=== PATIENT | male | born 1970 | race Caucasian/White ===

== ENCOUNTER 2016-04-06 00:30 | Emergency (ER) | payer OTHER ==
[~2016-04-06] VITALS: Ht 167.6 cm; Wt 104.5 kg
[2016-04-06 00:40] VITALS: TEMP 37.5; Ht 167.6 cm; Wt 104.5 kg
[2016-04-06] MEDS ORDERED: XYLOCAINE 1%/SOD BICARB 20 ML VIAL INFIL ONE (00:47)
[2016-04-06] MEDS ORDERED: LIDO/EPINEPHRINE/SOD BICARB 20 ML VIAL INFIL ONE (00:59)
[2016-04-06] MEDS ORDERED: CEPHALEXIN 500MG HOME PACK 1 EA BTL PO ONE (01:15)
[2016-04-06] MEDS ORDERED: CEPH500C PO (01:33)
--- NOTE | 2016-04-06 01:46 | EMERGENCY ROOM VISIT NOTE ---
ED Visit Note First contact with patient: 00:46 CHIEF COMPLAINT: Hand injury HISTORY OF PRESENT ILLNESS: This 46 yo patient presented to the emergency department with family after they injured the right hand when he fell tonight landing on the ground. The patient rates the pain as mild and 2/10. The patient denies any numbness or tingling. The patient does not have injuries to the wrist. The patient has not Had a previous fracture to this hand.patient has a laceration to the hand. Tetanus is current. REVIEW OF SYSTEMS: A 6 system review of systems was completed with positives and pertinent negatives in the HPI. ALLERGIES: Dilaudid MEDICATIONS: Reviewed PMH: Hypertension SOCIAL HISTORY: No drug use PHYSICAL EXAM: Vital Signs: Reviewed Nurse's notes, vital signs stable. GENERAL : Pleasant male, in no acute distress, but appears to be in pain, well-developed , well-nourished. MUSCULOSKELETAL: There is no deformity of the right hand. There is tenderness medial aspect of the hand. There is no thenar or hypothenar eminence atrophy. Normal thumb opposition to all fingers. [employer] strength 5/5. There is a 4cm laceration, dorsal aspect. Capillary refill less than 2 seconds. No tenderness of the fingers or wrist. Patient has decreased extension of the fourth finger with resistance. All other fingers have full strength of extension and flexion of the fingers. Full range of motion of the wrist. No snuff box tenderness. Radial pulse 2+. NEURO: Alert and oriented to person, place, and time. Normal sensation to light and sharp touch. EMERGENCY DEPARTMENT COURSE: I examined the patient. An x-ray of the right hand was reviewed by myself and my attending and shows no fracture. Location: Right hand Total length: 4 cm Complexity: Complex, tendon injury Verbal consent was obtained after the risks and benefits were explained, including but not limited to bleeding, scarring, infection, pain, and bone/joint /nerve damage. At this time, the risks of the procedure are less than the risks of NOT performing the procedure. A time out was taken and the correct patient and site identified. The skin was prepped with betadine. The target area was anesthetized with 5 ml of 1% lidocaine without epinephrine. Patient had extensive capillary bleeding and local lidocaine with epinephrine, 3mls, was used to control bleeding. Hemostasis was achieved. Copious irrigation was performed using NSS. The skin was re-prepped with betadine and a sterile field set. The wound was explored for foreign bodies and none found. Examination revealed injury to deep structures such as a partial tendon injury without injury to the bone. Debridement was not performed. The wound edges were approximated using 8, 4-0 simple interrupted nylon sutures. Hemostasis and excellent approximation was achieved. Antibacterial ointment and a sterile dressing applied. Detailed wound care instructions and signs and symptoms of infection reviewed with the pt. No complications and the patient tolerated the procedure well. Splinting Indication: Right hand tendon injury Verbal consent obtained. Risks and benefits were explained with the usual customary discussion. The injured extremity was identified. The patient was prepped and measured for the placement of a ulnar ortho-glass splint. Splint applied in the standard fashion over a layer of webril and secured using an elastic bandage. Set into a position of function. Normal neurovascular status after placement verified by me. The patient tolerated the procedure well and the care of the splint was discussed with the patient/family. No complications. Patient started on antibiotics for the extensive injury. He was counseled on the importance of following up with orthopedic, hand, for definitive care for his hand injury. Family opts to follow-up with their local doctor at [facility]. There is still given information for the local hand doctor here in [facility]. They're advised to return to the ER immediately for severe pain, numbness, tingling, worsening signs or symptoms or as needed. The patient was discharged home in good condition. DIAGNOSIS: #1 right hand injury #2 right hand laceration #3 right hand tendon injury DISCHARGE INSTRUCTIONS: DO NOT drive, drink alcohol, operate machinery, or perform dangerous activities today. You were given medications in the ER that can affect your ability to safely function or operate a vehicle. Cephalexin(Keflex) 500mg: Take one pill four times daily for 10 days. All antibiotics can cause diarrhea. If this occurs and you feel worse or it does not resolve in 1-2 days follow up with your doctor or return to the Emergency Department as this could be signs of serious underlying problems. Any medication can cause an allergic reaction, stop the pills immediately and return to the ER for rash, hives, breathing difficulties, or swelling. Ibuprofen(Motrin, Advil) may be used for fever or pain. Use 600mg every six hours as needed. Take with food. Avoid using more than 2400mg in a 24 hour period. Do not use 2400mg per day for more than three consecutive days without physician direction. Prolonged inappropriate use can lead to stomach upset or ulcers. This medication can be taken if you need to drive, work, or perform activities which may be dangerous when taking narcotic pain medication. (AND/OR) Acetaminophen(Tylenol) may be used for fever or pain. Use 1000mg every six hours as needed. Avoid using more than 3000mg in a 24 hour period. This medication can be taken if you need to drive, work, or perform activities which may be dangerous when taking narcotic pain medication. Ice compresses for 20 minutes at a time four times daily for 2-3 days. Rest and elevate your injury. Do not get the splint wet. If your splint feels excessively tight, you have worsening pain, develop numbness or tingling, or your digits appear blue, loosen the ely wrap. Then reapply the ely wrap gently without removing the splint. If your symptoms are not quickly relieved return to the ER for re- evaluation. Continue current medications. Return to the ER immediately for any numbness, tingling, severe pain, extreme swelling in the extremity or as needed. Call Orthopedics tomorrow to arrange follow up for your injury. See the hand doctor on Thursday. Call for an appointment. Problem List Medical Problems: (1) Hypertension Status: Chronic Current/Historical Medications Scheduled Cephalexin Monohydrate (Keflex), 500 MG PO QID Allergies Coded Allergies: Hydromorphone (Verified Adverse Reaction, Intermediate, N/V, 04/06/16) Vital Signs Date Time Temp Pulse Resp B/P Pulse Ox O2 Delivery O2 Flow Rate FiO2 04/06/16 00:40 37.5 127 20 131/79 95 Room Air Departure Information Impression Primary Impression: Extensor tendon laceration of right hand with open wound Additional Impression: Laceration of right hand Dispostion Home / Self-Care Condition GOOD Prescriptions Cephalexin Monohydrate (Keflex) 500 Mg Cap 500 MG PO QID for 9 Days, #36 CAP Prov: Jeanine Prasad .DYLON 04/06/16 Referrals Rafy Porter MD Forms WORK / SCHOOL INSTRUCTIONS, HOME CARE DOCUMENTATION FORM, IMPORTANT VISIT INFORMATION Patient Instructions Laceration Flexor Tendon Tx, My [facility], ED Laceration All Additional Instructions DO NOT drive, drink alcohol, operate machinery, or perform dangerous activities today. You were given medications in the ER that can affect your ability to safely function or operate a vehicle. Cephalexin(Keflex) 500mg: Take one pill four times daily for 10 days. All antibiotics can cause diarrhea. If this occurs and you feel worse or it does not resolve in 1-2 days follow up with your doctor or return to the Emergency Department as this could be signs of serious underlying problems. Any medication can cause an allergic reaction, stop the pills immediately and return to the ER for rash, hives, breathing difficulties, or swelling. Ibuprofen(Motrin, Advil) may be used for fever or pain. Use 600mg every six hours as needed. Take with food. Avoid using more than 2400mg in a 24 hour period. Do not use 2400mg per day for more than three consecutive days without physician direction. Prolonged inappropriate use can lead to stomach upset or ulcers. This medication can be taken if you need to drive, work, or perform activities which may be dangerous when taking narcotic pain medication. (AND/OR) Acetaminophen(Tylenol) may be used for fever or pain. Use 1000mg every six hours as needed. Avoid using more than 3000mg in a 24 hour period. This medication can be taken if you need to drive, work, or perform activities which may be dangerous when taking narcotic pain medication. Ice compresses for 20 minutes at a time four times daily for 2-3 days. Rest and elevate your injury. Do not get the splint wet. If your splint feels excessively tight, you have worsening pain, develop numbness or tingling, or your digits appear blue, loosen the ely wrap. Then reapply the ely wrap gently without removing the splint. If your symptoms are not quickly relieved return to the ER for re- evaluation. Continue current medications. Return to the ER immediately for any numbness, tingling, severe pain, extreme swelling in the extremity or as needed. Call Orthopedics tomorrow to arrange follow up for your injury. See the hand doctor on Thursday. Call for an appointment. Problem Qualifiers
[2016-04-06 02:02] VITALS: BP 97/66; PULSE 103; O2SAT 93
--- NOTE | 2016-04-06 05:58 | DIAGNOSTIC IMAGING REPORT ---
RIGHT HAND MIN 3 VIEWS ROUTINE CLINICAL HISTORY: fall, right Right trauma. Pain. COMPARISON: None. DISCUSSION: Evidence for old fracture of the fifth metacarpal. Mild soft tissue edema. No acute bony abnormality. IMPRESSION: Mild soft tissue edema. Deformity fifth metacarpal secondary to old trauma. No acute bony abnormality. Electronically signed by: Seth Torres M.D. 04/06/2016 5:57 AM Dictated Date/Time: 04/06/2016 5:56 AM
== END 2016-04-06 02:07 | disposition home or self-care (01) ==
LOC: C.EDB 00:30
DX: S66.324A Laceration of extensor muscle, fascia and tendon of right ring finger at wrist and hand level, initial encounter (principal); W19.XXXA Unspecified fall, initial encounter; I10 Essential (primary) hypertension; Z88.5 Allergy status to narcotic agent

== ENCOUNTER 2017-03-24 12:24 | Emergency (ER) | payer OTHER ==
[~2017-03-24] VITALS: Ht 167.6 cm; Wt 106.8 kg
[2017-03-24 12:26] VITALS: TEMP 36.8; Ht 167.6 cm; Wt 106.8 kg
[2017-03-24] MEDS ORDERED: CEPHALEXIN MONOHYDRATE 250 MG CAP PO ONE (13:00)
--- NOTE | 2017-03-24 13:21 | DIAGNOSTIC IMAGING REPORT ---
R FINGER(S) MIN 2 VIEWS ROUTINE CLINICAL HISTORY: 47 years-old Male presenting with R 5TH FINGERTIP AVULSION/CRUSH INJURY. TECHNIQUE: Frontal, oblique, and lateral views of the right fifth finger were obtained. COMPARISON: 04/06/2016. FINDINGS: Interval development of nondisplaced transversely oriented fracture of the tuft of the distal phalanx of the right fifth finger. An overlying bandage partially tears underlying osseous detail. No malalignment. This does not involve the distal interphalangeal joint. No additional fracture is evident. IMPRESSION: Nondisplaced fracture of the tuft of the distal phalanx of the right fifth finger. Electronically signed by: Connor Hernandez M.D. 03/24/2017 1:20 PM Dictated Date/Time: 03/24/2017 1:19 PM
[2017-03-24] MEDS ORDERED: CEPH500C PO (13:28)
[2017-03-24 13:48] VITALS: BP 159/99; PULSE 91; O2SAT 98
--- NOTE | 2017-03-24 21:22 | EMERGENCY ROOM VISIT NOTE ---
History First contact with patient: 12:41 Chief Complaint: LACERATION/CUT (SUT/DERMABOND) Stated Complaint: LAC TO R FINGER, PINKY Nursing Triage Summary: avulsion to right 5th finger. drive shaft fell down and smahed hand History of Present Illness The patient is a 47 year old male who presents to the Emergency Room with complaints of a laceration to his right fifth finger. The patient reports that he was attempting to remove a drive shaft from a truck when it fell and smashed his fingers. He reports a laceration to the ring finger, but denies any significant discomfort. He rates his small finger pain a 6 out of 10. Tetanus immunization is up-to-date. The patient is [id number]. The patient reports that this was a work-related injury. Review of Systems 10 system review was performed and was negative except for pertinent positives and negatives as indicated in history of present illness Past Medical/Surgical History Medical Problems: (1) Hypertension Family History FH: hypertension No pertinent family history Social History Smoking Status: Never Smoker Alcohol Use: occasionally Drug Use: none Marital Status: Housing Status: lives with family Occupation Status: employed Current/Historical Medications Scheduled Cephalexin Monohydrate (Keflex), 500 MG PO TID Physical Exam Vital Signs Date Time Temp Pulse Resp B/P (MAP) Pulse Ox O2 Delivery O2 Flow Rate FiO2 03/24/17 13:48 91 16 159/99 98 03/24/17 12:26 36.8 97 18 163/109 97 Room Air Physical Exam CONSTITUTIONAL: Healthy and well nourished. Alert and oriented X 3 with positive affect. She does not appear in any acute distress. HEENT: Normocephalic, atraumatic. Pupils equal, round and reactive. NECK: Full active range of motion without discomfort. MUSCULOSKELETAL: Examination of the right hand shows a small laceration to the dorsal middle phalanx of the ring finger. Laceration is approximately 0.5 cm in length, and is mostly epidermal involvement. It will not require suture repair. Examination of the fifth finger shows a wall of the dorsal fingertip, and distal half of the nail plate is totally avulsed. The bone is not exposed, and the underlying soft tissue appears to cover the tuft. The patient has no tenderness to palpation of the middle phalanx. Capillary refill is brisk. INTEGUMENTARY: No rash or other significant dermatologic conditions noted. NEUROLOGIC: Right hand and fingers are sensory intact. Medical Decision & Procedures ER Provider Diagnostic Interpretation: My interpretation of right fifth finger x-ray shows a fracture of the tuft. Radiologist report is as follows: R FINGER(S) MIN 2 VIEWS ROUTINE CLINICAL HISTORY: 47 years-old Male presenting with R 5TH FINGERTIP AVULSION/CRUSH INJURY. TECHNIQUE: Frontal, oblique, and lateral views of the right fifth finger were obtained. COMPARISON: 04/06/2016. FINDINGS: Interval development of nondisplaced transversely oriented fracture of the tuft of the distal phalanx of the right fifth finger. An overlying bandage partially tears underlying osseous detail. No malalignment. This does not involve the distal interphalangeal joint. No additional fracture is evident. IMPRESSION: Nondisplaced fracture of the tuft of the distal phalanx of the right fifth finger. Medications Administered Medications (Trade) Dose Ordered Sig/Esme Route Start Time Stop Time Status Last Admin Dose Admin Cephalexin Monohydrate (Keflex Cap) 500 mg NOW ONCE PO 03/24/17 13:00 03/24/17 13:01 DC 03/24/17 13:10 500 MG ED Course Patient history and physical exam were performed. Nurse's notes were reviewed. Vital signs were reviewed and were normal. The patient refused any analgesics. The patient was administered Keflex 500 mg orally. X-rays of the fifth finger shows a transverse fracture of the tuft. A bacitracin dressing was applied. The patient was provided a prescription for Keflex. He refused any prescription analgesics. He was encouraged to intermittently apply ice and elevate the hand for swelling. Ibuprofen and Tylenol in alternating fashion if needed for additional pain relief. The patient was provided contact information for Dr. Porter for further follow-up and management. The patient was happy with plan of care, voiced understanding of all discharge instructions , and rated his pain a 4 out of 10 at the time of discharge. The patient's blood pressure was noted to be elevated while in the emergency department, and fell to the secondary to pain. I did encourage the patient to follow-up with his PCP for blood pressure recheck. Medical Decision Medication Reconcilliation Current Medication List: was personally reviewed by me Blood Pressure Screening Patient's blood pressure: Elevated blood pressure Blood pressure disposition: Elevated BP felt to be situational, Referred to PCP Impression Primary Impression: Open fracture of finger of right hand Additional Impression: Work related injury Departure Information Prescriptions Cephalexin Monohydrate (Keflex) 500 Mg Cap 500 MG PO TID for 7 Days, #21 CAP Prov: Rick Turk PA 03/24/17 Referrals Mariana Shah D.O. (PCP) Patient Instructions My [facility] Problem Qualifiers Primary Impression: Open fracture of finger of right hand Encounter type: initial encounter Finger: little finger Phalanx: distal Fracture alignment: nondisplaced Qualified Codes: S62.666B - Nondisplaced fracture of distal phalanx of right little finger, initial encounter for open fracture
== END 2017-03-24 13:45 | disposition home or self-care (01) ==
LOC: C.EDB 12:25 → C.EDD 13:45
DX: S62.666B Nondisplaced fracture of distal phalanx of right little finger, initial encounter for open fracture (principal); W22.8XXA Striking against or struck by other objects, initial encounter; Y99.0 Civilian activity done for income or pay